=== PATIENT | male | born 1970 | race Two or more races ===

== ENCOUNTER 2019-02-25 12:14 | Emergency (ER) | payer OTHER ==
[~2019-02-25] VITALS: Ht 177.8 cm; Wt 95.3 kg
[2019-02-25 14:00] VITALS: BP 112/72
[2019-02-25] MEDS ORDERED: CLINDAMYCIN 600 MG/4 ML VL IM ONE (14:45)
[2019-02-25] MEDS ORDERED: CLINDAMYCIN 600MG IV 50 ML IV ONE (14:45)
[2019-02-25] MEDS ORDERED: cefTRIAXone 1GM/50ML D5W 50 ML IV ONE (14:45)
[2019-02-25] MEDS ORDERED: cefTRIAXone SOD 1,000 MG VL IM ONE (14:45)
[2019-02-25 14:47] LABS: Basophils # (auto) 0 uL; Basophils % (auto) 0.5 % (0.0-2.0); Eosinophils # (auto) 0.2 uL; Eosinophils % (auto) 1.8 % (0.0-7.0); Hemoglobin 14.6 g/dL (13.5-17.5); Lymphocytes # (auto) 2.3 uL; Lymphocytes % (auto) 24.3 % (10.0-50.0); Mean Corpuscular Hemoglobin 30.6 pg (28.0-32.0); Mean Corpuscular Hgb Conc. 33.2 g/dL (32.0-36.0); Mean Corpuscular Volume 92.3 fL (80.0-100.0); Monocytes # (auto) 0.8 uL; Monocytes % (auto) 8.2 % (0.0-12.0); Neutrophils # (auto) 6.2 uL; Neutrophils % (auto) 65.2 % (37.0-80.0); Nucleated Red Blood Cells % 0.1 %; Platelet Count (auto) 266 10^3/uL (140-450); Red Blood Cells 4.77 10^6/uL (4.5-5.90); Red Cell Distribution Width 14.1 % (11.8-14.3); White Blood Cell 9.4 10^3/uL (4.4-10.8)
[2019-02-25 15:00] LABS: Albumin 4.1 g/dL (3.4-5.0); BUN/Creatinine Ratio 17.7; Potassium 3.6 mmol/L (3.5-5.1)
[2019-02-25 15:03] LABS: Bilirubin, Total 0.3 mg/dL (0.2-1.0)
== END 2019-02-25 15:32 | disposition home or self-care (01) ==
LOC: ER 12:23
DX: L03.115 Cellulitis of right lower limb (principal); Z88.6 Allergy status to analgesic agent; Z48.01 Encounter for change or removal of surgical wound dressing
CPT/HCPCS: 36415; 73590; 80053; 83605; 85025; 87040; 94761; 96365; 96368; 99284; J0696; J3490

== ENCOUNTER → 2019-12-29 | Outpatient (CLI) | payer OTHER ==
[~2019-12-29] MED LIST: CLIN300C8 PO; LEVO-28 PO
[2019-12-29 10:51] LABS: Prostate Specific Antigen 1.78 ng/mL (0.0-4.0)
[2019-12-29 10:52] LABS: Folate (Folic Acid) 16.09 ng/mL (5.38-24)
[2019-12-29 11:21] LABS: BUN/Creatinine Ratio 15.3; Bilirubin, Total 0.4 mg/dL (0.2-1.0); Calcium 9.1 mg/dL (8.5-10.1); Potassium 3.9 mmol/L (3.5-5.1)
[2019-12-30 03:10] LABS: RPR Non Reactive (Non Reactive)
== END | disposition home or self-care (01) ==
LOC: LAB 09:35
PROVIDERS: ATTEND Internal Medicine
DX: Z00.00 Encounter for general adult medical examination without abnormal findings (principal); F10.11 Alcohol abuse, in remission; L03.115 Cellulitis of right lower limb; Z12.11 Encounter for screening for malignant neoplasm of colon; Z20.2 Contact with and (suspected) exposure to infections with a predominantly sexual mode of transmission; Z12.5 Encounter for screening for malignant neoplasm of prostate; Z98.890 Other specified postprocedural states
CPT/HCPCS: 36415; 80053; 80061; 82607; 82746; 84153; 84443; 86592; 86703

== ENCOUNTER → 2020-01-02 | Outpatient (CLI) | payer OTHER | END | disposition home or self-care (01) | LOC: LAB 10:19 | PROVIDERS: ATTEND Internal Medicine | DX: Z00.00 Encounter for general adult medical examination without abnormal findings (principal); F10.11 Alcohol abuse, in remission; Z12.5 Encounter for screening for malignant neoplasm of prostate; Z20.2 Contact with and (suspected) exposure to infections with a predominantly sexual mode of transmission; Z12.11 Encounter for screening for malignant neoplasm of colon | CPT/HCPCS: 82274 ==

== ENCOUNTER → 2020-01-16 | Outpatient (CLI) | payer OTHER | END | disposition home or self-care (01) | LOC: LAB 15:30 | PROVIDERS: ATTEND Physician Assistant | DX: L82.1 Other seborrheic keratosis (principal) ==

== ENCOUNTER 2020-03-29 09:26 | Day surgery (SDC) | payer OTHER ==
[2020-03-26 10:26] LABS: Basophils # (auto) 0 10 ^3/uL (0-0.2); Basophils % (auto) 0.5 % (0.0-2.0); Eosinophils # (auto) 0.1 10 ^3/uL (0-0.8); Eosinophils % (auto) 1.4 % (0.0-7.0); Hematocrit 44.7 % (41.0-53.0); Hemoglobin 14.9 g/dL (13.5-17.5); Mean Corpuscular Hemoglobin 30.8 pg (28.0-32.0); Mean Corpuscular Hgb Conc. 33.4 g/dL (32.0-36.0); Mean Corpuscular Volume 92.1 fL (80.0-100.0); Monocytes # (auto) 0.5 10 ^3/uL (0-1.3); Monocytes % (auto) 5.9 % (0.0-12.0); Neutrophils # (auto) 5.7 10 ^3/uL (1.6-8.6); Neutrophils % (auto) 68.2 % (37.0-80.0); Nucleated Red Blood Cells % 0.1 %; Platelet Count (auto) 223 10^3/uL (140-450); Red Blood Cells 4.85 10^6/uL (4.5-5.90); Red Cell Distribution Width 14.1 % (11.8-14.3); White Blood Cell 8.4 10^3/uL (4.4-10.8)
[2020-03-26 10:34] LABS: INR 1.03 (0.9-1.15); Partial Thromboplastin Time 29.9 sec (23.64-32.05)
[~2020-03-29] VITALS: Ht 177.8 cm; Wt 97.5 kg
[2020-03-29] MEDS ORDERED: SODIUM CHLORIDE LOCK 10 ML ONE (10:02)
[2020-03-29] MEDS: fentaNYL CITRATE 100 MCG/2 ML VL ONE ×3 (10:59→11:08)
[2020-03-29] MEDS: MIDAZOLAM HCL 5 MG/ML-1ML VIAL ONE ×3 (10:59→11:08)
[2020-03-29] MEDS: diphenhdrAMINE HCL 50 MG/1 ML VL ONE ×2 (11:01→11:18)
[2020-03-29 12:17] VITALS: BP 110/64
== END 2020-03-29 12:27 | disposition home or self-care (01) ==
LOC: GI 09:26
PROVIDERS: ATTEND Internal Medicine Gastroenterology
DX: K92.1 Melena (principal); D12.0 Benign neoplasm of cecum; D12.2 Benign neoplasm of ascending colon; Z98.890 Other specified postprocedural states; Z79.899 Other long term (current) drug therapy; Z88.5 Allergy status to narcotic agent
CPT/HCPCS: 36415; 45385; 85025; 85610; 85730; 88305; J1200; J2250; J3010; J7030; 45380; 99152; 99153

== ENCOUNTER → 2020-04-10 | Outpatient (CLI) | payer OTHER | END | disposition home or self-care (01) | LOC: LAB 13:28 | PROVIDERS: ATTEND Surgery | DX: D12.6 Benign neoplasm of colon, unspecified (principal) | CPT/HCPCS: 36415; 82565; 84520 ==

== ENCOUNTER 2020-05-01 06:04 | Inpatient (IN) | payer OTHER ==
[2020-04-29 09:20] LABS: Basophils # (auto) 0 10 ^3/uL (0-0.2); Basophils % (auto) 0.6 % (0.0-2.0); Eosinophils # (auto) 0.1 10 ^3/uL (0-0.8); Eosinophils % (auto) 1.6 % (0.0-7.0); Hematocrit 45.2 % (41.0-53.0); Hemoglobin 15.1 g/dL (13.5-17.5); Lymphocytes # (auto) 2.4 10 ^3/uL (0.4-5.4); Lymphocytes % (auto) 29.8 % (10.0-50.0); Mean Corpuscular Hemoglobin 30.8 pg (28.0-32.0); Mean Corpuscular Hgb Conc. 33.4 g/dL (32.0-36.0); Mean Corpuscular Volume 92.3 fL (80.0-100.0); Monocytes # (auto) 0.5 10 ^3/uL (0-1.3); Neutrophils # (auto) 4.9 10 ^3/uL (1.6-8.6); Nucleated Red Blood Cells % 0.1 %; Platelet Count (auto) 218 10^3/uL (140-450); Red Blood Cells 4.89 10^6/uL (4.5-5.90); White Blood Cell 7.9 10^3/uL (4.4-10.8)
[2020-04-29 09:26] LABS: Urine Bacteria NONE SEEN /hpf (None Seen); Urine Blood Negative /uL (Negative); Urine Mucus FEW (None Seen); Urine Specific Gravity 1.027 (1.001-1.035); Urine WBC 2 /hpf (0 - 3)
[2020-04-29 09:34] LABS: INR 1.02 (0.9-1.15); Partial Thromboplastin Time 30.5 sec (23.64-32.05)
[2020-04-29 09:44] LABS: Albumin 3.7 g/dL (3.4-5.0); Calcium 8.6 mg/dL (8.5-10.1)
[2020-04-29 09:49] LABS: Bilirubin, Total 0.4 mg/dL (0.2-1.0); Total Protein 7.2 g/dL (6.4-8.2)
[~2020-05-01] VITALS: Ht 177.8 cm; Wt 96.7 kg
[2020-05-01] MEDS ORDERED: cefTRIAXone SOD 1,000 MG VL ONE (06:31)
[2020-05-01] MEDS ORDERED: PROPOFOL 10 MG/ML 20 ML IV ONE (07:29)
[2020-05-01] MEDS ORDERED: ROCURONIUM 10MG/ML 10ML VIAL IV ONE (07:29)
[2020-05-01] MEDS ORDERED: ONDANSETRON HCL 4 MG/2 ML VIAL ONE (07:29)
[2020-05-01] MEDS ORDERED: MIDAZOLAM HCL 1MG/1ML-2 ML VIAL ONE (07:29)
[2020-05-01] MEDS ORDERED: fentaNYL CITRATE 5 ML ONE (07:29)
[2020-05-01] MEDS ORDERED: fentaNYL CITRATE 100 MCG/2 ML VL ONE (07:29)
[2020-05-01] MEDS ORDERED: SODIUM CHLORIDE LOCK 10 ML ONE (07:29)
[2020-05-01] MEDS ORDERED: HYDROmorphone HCL 2 MG/ML VL ONE (08:13)
[2020-05-01] MEDS ORDERED: NEOSTIGMINE 1 MG/ML INJ (10mg/10ML VIAL) IV ONE (10:13)
[2020-05-01] MEDS ORDERED: GLYCOPYRROLATE 0.2 MG/ML 1ML VIAL IV ONE (10:13)
[2020-05-01] MEDS ORDERED: SUCCINYLCHOLINE CHLORIDE 20 MG/ML 10ML VIAL IV ONE (10:13)
[2020-05-01] MEDS ORDERED: fentaNYL CITRATE 100 MCG/2 ML VL IV PRN (10:15)
[2020-05-01] MEDS ORDERED: METOCLOPRAMIDE HCL 5MG/ml INJ 2ml VIAL IV PRN (10:15)
[2020-05-01] MEDS ORDERED: MEPERIDINE HCL (25 MG/ML) 1ML VIAL ONE ×2 (11:57→11:59)
[2020-05-01] MEDS ORDERED: KETOROLAC TROMETH 30 MG/ML 1ML VIAL IV ONE (12:00)
[2020-05-01] MEDS ORDERED: D5W/SOD CHL 0.45%/KCL 40MEQ 1,000 ML IV ONE (12:00)
[2020-05-01] MEDS: HYDROmorphone HCL 2 MG/ML VL IV PRN ×5 (12:19→23:37)
[2020-05-01] MEDS: ceFAZolin 1GM/50ML 50 ML IV SCH ×3 (14:14→23:34)
[2020-05-01 14:25] VITALS: BP 108/76
--- NOTE | 2020-05-01 14:25 | NUR ---
PATIENT ARRIVED TO ROOM FROM SURGERY VIA BED. PATIENT ORIENTED TO ROOM, CALL LIGHT PLACED BEDSIDE, BED IN LOCKED AND LOWEST POSITION AND BRAKE SET. NGT PLACED ON LCS. ABDOMINAL INCISION DRESSING IS CLEAN, DRY AND INTACT WITH ABDOMINAL BINDER IN PLACE. PATIENT VS 98.1, 94%, 108/76, 87, 16. NO COMPLAINTS OF PAIN AT THIS TIME. WILL CONTINUE TO MONITOR Q1H AND PRN
[2020-05-01] MEDS: SODIUM CHLORIDE 0.9% 1,000 ML IV SCH (15:03)
[2020-05-01 17:00] VITALS: BP 106/69
--- NOTE | 2020-05-01 18:37 | NUR ---
PAGED DR GARCIA. PATIENT IS FEELING VERY GASSY AND UNCOMFORTABLE HE WOULD LIKE SOME GAS MEDICINE.
--- NOTE | 2020-05-01 18:44 | NUR ---
RECEIVED CALL FROM DR GARCIA, NO ORDERS FOR GAS MEDICINE AT THIS TIME.
--- NOTE | 2020-05-01 18:56 | NUR ---
UPDATE ON PATIENTS STATUS GIVEN TO PATIENTS DAUGHTER, NICKI. PASSWORD WAS VERIFIED.
[2020-05-01 22:00] VITALS: BP 113/67
[2020-05-01] MEDS: FAMOTIDINE (10MG/ML) 2ML VL IV SCH (23:20)
[2020-05-02] MEDS: SODIUM CHLORIDE 0.9% 1,000 ML IV SCH ×3 (00:21→20:00)
[2020-05-02] MEDS: HYDROmorphone HCL 2 MG/ML VL IV PRN ×5 (03:26→21:26)
[2020-05-02 05:00] VITALS: BP 108/62
[2020-05-02 05:16] LABS: Basophils # (auto) 0 10 ^3/uL (0-0.2); Basophils % (auto) 0.3 % (0.0-2.0); Eosinophils # (auto) 0 10 ^3/uL (0-0.8); Eosinophils % (auto) 0.1 % (0.0-7.0); Hematocrit 40.5 % (41.0-53.0); Hemoglobin 13.5 g/dL (13.5-17.5); Lymphocytes # (auto) 1.4 10 ^3/uL (0.4-5.4); Lymphocytes % (auto) 12.6 % (10.0-50.0); Mean Corpuscular Hemoglobin 30.8 pg (28.0-32.0); Mean Corpuscular Hgb Conc. 33.4 g/dL (32.0-36.0); Mean Corpuscular Volume 92.4 fL (80.0-100.0); Monocytes % (auto) 9.5 % (0.0-12.0); Neutrophils # (auto) 8.4 10 ^3/uL (1.6-8.6); Neutrophils % (auto) 77.5 % (37.0-80.0); Platelet Count (auto) 198 10^3/uL (140-450); Red Blood Cells 4.38 10^6/uL (4.5-5.90); Red Cell Distribution Width 14.1 % (11.8-14.3); White Blood Cell 10.9 10^3/uL (4.4-10.8)
[2020-05-02 05:40] LABS: Albumin 2.9 g/dL (3.4-5.0); BUN/Creatinine Ratio 9.5; Calcium 7.8 mg/dL (8.5-10.1); Potassium 3.9 mmol/L (3.5-5.1)
[2020-05-02 05:43] LABS: Bilirubin, Total 0.6 mg/dL (0.2-1.0); Total Protein 6.2 g/dL (6.4-8.2)
[2020-05-02] MEDS: ceFAZolin 1GM/50ML 50 ML IV SCH ×4 (05:44→23:38)
--- NOTE | 2020-05-02 07:43 | NUR ---
RECEIVED REPORT AND ASSUMED CARE OF PT. Ja/ANMOL4. DENIED S/S ACUTE DISTRESS. UPDATE PT WITH POC. BED AT LOWEST POSITION. CALL LIGHT AND BELONGINGS WITHIN REACH. WILL CONT TO MONITOR. Addendum: 05/02/20 at 1933 by HAYDER VASQUEZ RN ENCOURAGED TO US IS
[2020-05-02] MEDS ORDERED: cefTRIAXone 1GM/50ML D5W 50 ML IV SCH (09:00)
[2020-05-02 09:01] VITALS: BP 131/69
[2020-05-02] MEDS ORDERED: IBUP800T24 PO (09:36)
[2020-05-02] MEDS: FAMOTIDINE (10MG/ML) 2ML VL IV SCH ×2 (10:39→21:26)
[2020-05-02 12:48] VITALS: BP 125/59
[2020-05-02 16:48] VITALS: BP 138/75
--- NOTE | 2020-05-02 19:33 | NUR ---
50ML OF SANGUINOUS OUTPUT FROM ABY DRAIN.
--- NOTE | 2020-05-02 19:50 | NUR ---
Opening Shift Note Assumed care of patient, eyes closed, respirations even and unlabored, appears asleep. Patient awakens to name and touch. No S/S of distress/SOB or pain. Bed in lowest locked position, side rails up x2, call light within reach. Minimal drainage to abdominal site noted, drainage outlined. [place] ABY drain noted, no output at this time. Abdominal binder in place. Will continue to monitor. Instructed on POC and to call for assist PRN, will continue to monitor for changes Q1hr and PRN.
[2020-05-02 22:00] VITALS: BP 122/78
[2020-05-03] MEDS: HYDROmorphone HCL 2 MG/ML VL IV PRN ×5 (02:04→22:08)
[2020-05-03 05:00] VITALS: BP 124/75
[2020-05-03] MEDS: SODIUM CHLORIDE 0.9% 1,000 ML IV SCH ×2 (06:00→16:04)
[2020-05-03] MEDS: ceFAZolin 1GM/50ML 50 ML IV SCH ×3 (06:59→17:58)
--- NOTE | 2020-05-03 07:00 | NUR ---
Opening Shift Note Received report on the patient. Awake lying in bed. Patient shows no signs of distress at this time. Discussed plan of care with the patient. Bed in lowest position, side rails up x2, and the call light is within reach.
--- NOTE | 2020-05-03 07:36 | NUR ---
Closing Note Patient lying in bed, awake and alert. Bed in lowest locked position, side rails up x2, call light within reach. No s/s of distress. Care endorsed to dayserin CARROLL. Addendum: 05/03/20 at 0839 by AMANDO BAUTISTA RN RN ADDITION: 25 ml of output from ABY drain at this time.
[2020-05-03 08:50] VITALS: BP 124/68
[2020-05-03 09:00] VITALS: BP 123/73
[2020-05-03] MEDS: FAMOTIDINE (10MG/ML) 2ML VL IV SCH ×2 (10:02→22:08)
[2020-05-03 13:48] VITALS: BP 123/73
--- NOTE | 2020-05-03 15:18 | NUR ---
Nutrition Assessment Notes Please refer to link for full assessment notes. Est Energy needs: 6727-4947 kcals (17-20 kcal/kgBW) Est Protein needs: 79-98 gms/day (0.8-1.0 gm/kgBW) Will continue to monitor and reassess prn. Addendum: 05/03/20 at [address] Amended: Links added.
[2020-05-03 16:42] VITALS: BP 135/69
--- NOTE | 2020-05-03 19:30 | NUR ---
Opening Shift Note Assumed care of patient, eyes closed, respirations even and unlabored, appears asleep. Patient awakens to name and touch. No S/S of distress/SOB or pain. Bed in lowest locked position, side rails up x2, call light within reach. Minimal drainage to abdominal site noted, drainage outlined. No further extension of drainage past previously marked outline yesterday. Singe ABY drain noted, no output at this time. Abdominal binder in place. Will continue to monitor. Instructed on POC and to call for assist PRN, will continue to monitor for changes Q1hr and PRN.
--- NOTE | 2020-05-03 19:31 | NUR ---
ABY drained 50cc out
[2020-05-03 22:00] VITALS: BP 123/67
[2020-05-04] MEDS: ceFAZolin 1GM/50ML 50 ML IV SCH ×4 (00:10→17:23)
[2020-05-04] MEDS: SODIUM CHLORIDE 0.9% 1,000 ML IV SCH ×3 (01:47→14:42)
[2020-05-04 05:00] VITALS: BP 124/69
[2020-05-04] MEDS: HYDROmorphone HCL 2 MG/ML VL IV PRN ×4 (05:45→22:08)
--- NOTE | 2020-05-04 07:40 | NUR ---
Opening Shift Note Assumed care of patient, eyes closed, respirations even and unlabored. No S/S of distress/SOB or pain. Bed in lowest locked position, side rails up x2, call light within reach. Minimal drainage to abdominal site noted, drainage outlined. No further extension of drainage past previously marked outline yesterday. Singe ABY drain noted, 50CC output at this time. Abdominal binder in place. Will continue to monitor. Instructed on POC and to call for assist PRN, will continue to monitor for changes Q1hr and PRN.
--- NOTE | 2020-05-04 07:40 | NUR ---
Closing Note Patient lying in bed, awake and alert. Bed in lowest locked position, side rails up x2, call light within reach. No s/s of distress. 50 ML drained from ABY drain. Care endorsed to dayshift RN.
[2020-05-04] MEDS: FAMOTIDINE (10MG/ML) 2ML VL IV SCH ×2 (09:06→21:32)
[2020-05-04] MEDS ORDERED: TPN PER PHARMACY 0 ML IV SCH (16:30)
--- NOTE | 2020-05-04 17:30 | NUR ---
PAGED ON-CALL HOSPITALIST RE: PT REQUEST FOR CHLORASEPTIC TO HELP WITH THROAT IRRITATION FROM NG TUBE. AWATING CALL BACK
--- NOTE | 2020-05-04 18:00 | NUR ---
removed 25cc from roberto drain 150cc obtained from NG tube
[2020-05-04 22:00] VITALS: BP 116/69
[2020-05-05] MEDS: ceFAZolin 1GM/50ML 50 ML IV SCH ×5 (00:40→23:44)
[2020-05-05] MEDS: HYDROmorphone HCL 2 MG/ML VL IV PRN ×4 (02:48→17:28)
[2020-05-05 05:00] VITALS: BP 116/67
[2020-05-05 05:50] LABS: Basophils # (auto) 0 10 ^3/uL (0-0.2); Basophils % (auto) 0.4 % (0.0-2.0); Eosinophils # (auto) 0.2 10 ^3/uL (0-0.8); Eosinophils % (auto) 2.3 % (0.0-7.0); Hematocrit 35.8 % (41.0-53.0); Hemoglobin 12.2 g/dL (13.5-17.5); Lymphocytes # (auto) 1.1 10 ^3/uL (0.4-5.4); Lymphocytes % (auto) 11.1 % (10.0-50.0); Mean Corpuscular Volume 91.1 fL (80.0-100.0); Monocytes % (auto) 10.2 % (0.0-12.0); Neutrophils # (auto) 7.6 10 ^3/uL (1.6-8.6); Nucleated Red Blood Cells % 0.1 %; Platelet Count (auto) 212 10^3/uL (140-450); Red Blood Cells 3.93 10^6/uL (4.5-5.90); Red Cell Distribution Width 13.3 % (11.8-14.3)
[2020-05-05 06:16] LABS: Albumin 2.6 g/dL (3.4-5.0); Calcium 8.1 mg/dL (8.5-10.1); Magnesium 2.4 mg/dL (1.6-2.6); Potassium 3.2 mmol/L (3.5-5.1)
[2020-05-05 06:22] LABS: BUN/Creatinine Ratio 14.5; Bilirubin, Total 0.5 mg/dL (0.2-1.0); Phosphorus 2.1 mg/dL (2.5-4.90); Pre Albumin 9.4 mg/dL (20.0-40.0); Total Protein 6.3 g/dL (6.4-8.2)
--- NOTE | 2020-05-05 07:23 | NUR ---
Closing Note Patient lying in bed, awake and alert. Bed in lowest locked position, side rails up x2, call light within reach. 125 ml of drainage from NG tube, 25 ml from ABY drain. No s/s of distress. Care endorsed to dayshift RN.
[2020-05-05 09:00] VITALS: BP 118/66
[2020-05-05] MEDS: SODIUM CHLORIDE 0.9% 1,000 ML IV SCH (11:03)
[2020-05-05] MEDS: FAMOTIDINE (10MG/ML) 2ML VL IV SCH ×2 (11:13→22:00)
--- NOTE | 2020-05-05 11:39 | NUR ---
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 Will inform .
[2020-05-05 13:00] VITALS: BP 118/64
[2020-05-05] MEDS: SORE THROAT SPRAY 6OZ BOTTLE MT PRN ×2 (14:30→17:31)
--- NOTE | 2020-05-05 15:13 | NUR ---
Nutrition Followup Note WT: 95.9 kg Pt`s s/p hemicolectomy sleeping with no family by bedside. pt is currently NPO and per RN to begin PN support once has PICC. Est Energy needs: 3279-1807 kcals (17-20 kcal/kgBW), Est Protein needs: 79-98 gms/day (0.8-1.0 gm/kgBW). Will continue to monitor and reassess prn. LABS: PREALB 9.4 L, ALB 2.6 L, CA 8.1 L, TG wnl GI: Pt has no BM reported with 120 ml gastric drainage per RN doc. BS: 20 low risk. Please refer to wound assessment report for full details. PES: Problem Altered nutrition related lab values r.t current chronic medical condition aeb hyperglycemia, mod hypoalb Problem: 1) Increased nutrient needs aeb Pt currently NPO r/t pt with no PO intake 2) Altered nutrition related lab values aeb hypocalcemia, mod hypoalbuminemia r/t current medical condition Comments: 1) advance PN support to meet > 75% of needs. 2) Continue to closely monitor pt NPO status. 2) Gradually advance pt to oral diet when medically feasible and as tolerated 3) Continue current plan of care
--- NOTE | 2020-05-05 16:00 | NUR ---
Hospitalist at bedside MD Lunsford aware of patient's status. New orders received to dc NGT as pt states he's passing "alot" of gas. New orders for ice chips now and advance diet to clear liq tomorrow for breakfast if pt tolerating ice chips and no n/v reported. Patient instructed and verbalized understanding. Will carry out orders and cont care
[2020-05-05] MEDS ORDERED: POTASSIUM CHLORIDE 20 MEQ, LIDOCAINE 1% (LOCAL ANESTH.) 2 ML in SODIUM CHL 0.9% 100 ML IV ONE (16:15)
[2020-05-05 17:00] VITALS: BP 117/65
--- NOTE | 2020-05-05 17:28 | NUR ---
NGT removal NGT removed per MD Lunsford order following explanation and instruction to patient. Patient verbalized understanding prior to removal. Medicated for pain as ordered and Patient tolerated well. Patient instructed to report any n/v/abd pain recurring he verbalized understanding. Cont care
[2020-05-05] MEDS: SOD CHL 0.9%/ KCL 20MEQ 1,000 ML IV SCH (17:42)
--- NOTE | 2020-05-05 19:00 | NUR ---
ABY drain removal output is 25ml serosanguineous fluid. Cont to monitor
[2020-05-05 21:00] VITALS: BP 106/42
[2020-05-06] MEDS: HYDROmorphone HCL 2 MG/ML VL IV PRN ×5 (00:53→19:21)
--- NOTE | 2020-05-06 00:53 | NUR ---
C/O pain patient requesting pain meds. Medicated with Dilaudid as ordered. Will cont to monitor
--- NOTE | 2020-05-06 02:55 | NUR ---
Patient care endorsed endorsed care to Hanny cerna. Patient resting in bed with eyes closed, breathing non labored, no s/s of pain noted at this time or n/v. Call light within reach.
--- NOTE | 2020-05-06 03:00 | NUR ---
Opening Shift Note Received report on the patient. Sleeping in bed. Patient shows no signs of distress at this time. Bed in lowest position, side rails up x2, and the call light is within reach.
[2020-05-06] MEDS: SOD CHL 0.9%/ KCL 20MEQ 1,000 ML IV SCH ×2 (04:05→12:37)
[2020-05-06] MEDS: SORE THROAT SPRAY 6OZ BOTTLE MT PRN (04:05)
[2020-05-06] MEDS: ceFAZolin 1GM/50ML 50 ML IV SCH ×2 (05:32→12:38)
[2020-05-06 06:32] LABS: Basophils # (auto) 0 10 ^3/uL (0-0.2); Basophils % (auto) 0.4 % (0.0-2.0); Eosinophils # (auto) 0.2 10 ^3/uL (0-0.8); Eosinophils % (auto) 1.7 % (0.0-7.0); Hematocrit 35.5 % (41.0-53.0); Lymphocytes # (auto) 1.1 10 ^3/uL (0.4-5.4); Mean Corpuscular Hemoglobin 30.8 pg (28.0-32.0); Mean Corpuscular Hgb Conc. 33.7 g/dL (32.0-36.0); Mean Corpuscular Volume 91.3 fL (80.0-100.0); Monocytes # (auto) 1.3 10 ^3/uL (0-1.3); Monocytes % (auto) 10.8 % (0.0-12.0); Neutrophils # (auto) 9.5 10 ^3/uL (1.6-8.6); Neutrophils % (auto) 78.1 % (37.0-80.0); Platelet Count (auto) 227 10^3/uL (140-450); Red Blood Cells 3.89 10^6/uL (4.5-5.90); Red Cell Distribution Width 13.8 % (11.8-14.3); White Blood Cell 12.1 10^3/uL (4.4-10.8)
[2020-05-06 06:53] LABS: Albumin 2.4 g/dL (3.4-5.0); Calcium 8.2 mg/dL (8.5-10.1); Magnesium 2.2 mg/dL (1.6-2.6); Potassium 3.5 mmol/L (3.5-5.1)
[2020-05-06 06:57] LABS: BUN/Creatinine Ratio 13.2; Bilirubin, Total 0.8 mg/dL (0.2-1.0); Phosphorus 2.4 mg/dL (2.5-4.90); Total Protein 6.3 g/dL (6.4-8.2)
--- NOTE | 2020-05-06 07:15 | NUR ---
OPENING SHIFT NOTE Assumed care of patient, hand off report received from NOC nurse at this time.
--- NOTE | 2020-05-06 08:00 | NUR ---
ABY drain full Patient called regarding ABY drain being full. 150 ml of bright red serosanguineous fluid removed at this time.
[2020-05-06 09:00] VITALS: BP 106/66
[2020-05-06 09:13] LABS: INR 1.06 (0.9-1.15)
[2020-05-06] MEDS: FAMOTIDINE (10MG/ML) 2ML VL IV SCH ×2 (10:33→22:08)
--- NOTE | 2020-05-06 12:10 | NUR ---
Elevated temperature Patient temperature 99.4 and 100.4 upon reassessment. paged at this time as patient has no PRN Tylenol. Cold packs placed on armpits at this time. Patient seen to be trembling and states he is cold. Will continue to monitor.
--- NOTE | 2020-05-06 12:15 | NUR ---
paged back Dr. Ibanez paged back, new orders for Tylenol 500 mg PO Q6hr PRN for temperature above 100.4. No other orders received at this time.
[2020-05-06] MEDS: ACETAMINOPHEN 325 MG TAB PO PRN ×2 (12:39→19:21)
[2020-05-06 13:00] VITALS: BP 117/69
--- NOTE | 2020-05-06 13:39 | NUR ---
Fever reassessment. Increased temperature of 102.4 at this time. New cold packs for underneath armpits changed at this time. Will notify MD of increase in temperature and continue to monitor.
[2020-05-06] MEDS ORDERED: cefTRIAXone 1GM/50ML D5W 50 ML IV ONE (14:00)
[2020-05-06] MEDS: metroNIDAZOLE 500MG/100ML 100 ML IV SCH ×2 (14:40→22:08)
[2020-05-06 17:02] VITALS: BP 147/97
--- NOTE | 2020-05-06 19:15 | NUR ---
ABY drain output 10 ml of serosanguineous bright red fluid.
--- NOTE | 2020-05-06 19:22 | NUR ---
Fever/pain Patient temperature 103.2 at this time. Cooling measures initiated will administer Tylenol 500 mg PO per MD orders and endorse care to NOC nurse. Patient complaining of pain 10/10 from right lower abdomen will medicate with Dilaudid 1 mg IV per MD orders at this time and endorse care to NOC nurse.
--- NOTE | 2020-05-06 19:30 | NUR ---
Opening Shift Note Assumed care of patient, awake and alert. No S/S of distress/SOB or pain. Instructed on POC and to call for assist PRN, will continue to monitor for changes Q1hr and PRN.
--- NOTE | 2020-05-06 19:51 | NUR ---
RE Pain patient said "my stomach hurts on and off, when it comes its a 6".
[2020-05-06 20:00] VITALS: BP 99/58
--- NOTE | 2020-05-06 20:21 | NUR ---
Re Temp Patient's temperature is 100.3 Cooling measures taken, will continue to monitor.
--- NOTE | 2020-05-06 21:40 | NUR ---
IV removal IV DC'd with clean sterile technique, catheter fully intact. Pressure dressing applied to site. Patient tolerated well.
--- NOTE | 2020-05-06 21:45 | NUR ---
IV insertion IV access obtained, via clean sterile technique by inserting 20 gauge catheter at RW after 1 attempts. IV secured properly. No trauma to site. Patient tolerated well.
[2020-05-06 22:07] VITALS: BP 99/58
[2020-05-06] MEDS: HYDROcodone-ACET 5/325MG TAB PO PRN (22:09)
--- NOTE | 2020-05-06 22:09 | NUR ---
Pain Patient c/o of pain 6/10 to abdomen, pain medication administered.
--- NOTE | 2020-05-06 23:09 | NUR ---
RE Pain Patient is resting with eyes close, no signs of pain or distress.
[2020-05-07] MEDS: SOD CHL 0.9%/ KCL 20MEQ 1,000 ML IV SCH ×2 (00:20→13:38)
[2020-05-07] MEDS: HYDROmorphone HCL 2 MG/ML VL IV PRN ×4 (00:29→20:40)
--- NOTE | 2020-05-07 00:29 | NUR ---
Pain Patient c/o pain 7/10 to lower abdomen, pain medication administered.
--- NOTE | 2020-05-07 00:30 | NUR ---
RE Temperature Patient's temperature is 99.6 orally, will continue to monitor.
--- NOTE | 2020-05-07 00:59 | NUR ---
RE Pain Patient resting with eyes closed, no signs of pain or distress, will continue to monitor.
[2020-05-07] MEDS: HYDROcodone-ACET 5/325MG TAB PO PRN (04:10)
--- NOTE | 2020-05-07 04:10 | NUR ---
Pain Patient c/o pain 6/10 to abdomen. pain medication administered.
--- NOTE | 2020-05-07 05:10 | NUR ---
RE Pain Patient resting with eyes closed, no signs of pain or distress, will continue to monitor.
[2020-05-07 05:28] VITALS: BP 109/70
--- NOTE | 2020-05-07 05:29 | NUR ---
Pain Patient c/o pain / to abdomen. pain medication administered.
[2020-05-07] MEDS: metroNIDAZOLE 500MG/100ML 100 ML IV SCH ×3 (05:34→22:17)
[2020-05-07 05:55] LABS: Basophils # (auto) 0 10 ^3/uL (0-0.2); Basophils % (auto) 0.2 % (0.0-2.0); Eosinophils # (auto) 0.2 10 ^3/uL (0-0.8); Eosinophils % (auto) 1.8 % (0.0-7.0); Hematocrit 35.5 % (41.0-53.0); Lymphocytes % (auto) 7.7 % (10.0-50.0); Mean Corpuscular Hemoglobin 31.1 pg (28.0-32.0); Mean Corpuscular Hgb Conc. 33.8 g/dL (32.0-36.0); Mean Corpuscular Volume 92.1 fL (80.0-100.0); Monocytes # (auto) 1.4 10 ^3/uL (0-1.3); Monocytes % (auto) 10.8 % (0.0-12.0); Neutrophils % (auto) 79.5 % (37.0-80.0); Nucleated Red Blood Cells % 0.1 %; Platelet Count (auto) 233 10^3/uL (140-450); Red Blood Cells 3.86 10^6/uL (4.5-5.90); Red Cell Distribution Width 13.8 % (11.8-14.3); White Blood Cell 12.5 10^3/uL (4.4-10.8)
[2020-05-07 06:16] LABS: Potassium 3.1 mmol/L (3.5-5.1)
[2020-05-07 06:28] LABS: BUN/Creatinine Ratio 8.8; Calcium 8.3 mg/dL (8.5-10.1)
--- NOTE | 2020-05-07 06:55 | NUR ---
ABY Drain ABY drain out 5ml sanguinous.
--- NOTE | 2020-05-07 07:05 | NUR ---
Closing shift note No s/s of distress noted, endorsed care to dayshift nurse.
[2020-05-07 08:44] VITALS: BP 95/55
--- NOTE | 2020-05-07 09:04 | NUR ---
OPENING SHIFT NOTE Assumed care of patient, PT is awake and alert. No S/S of distress/SOB. Instructed on POC. Call light within reach patient. Instructed PT to call for assistance, patient verbalized understanding. Will continue to monitor for changes Q1hr and PRN.
[2020-05-07] MEDS: FAMOTIDINE (10MG/ML) 2ML VL IV SCH ×2 (10:09→22:17)
[2020-05-07] MEDS: cefTRIAXone 1GM/50ML D5W 50 ML IV SCH (10:09)
[2020-05-07 13:00] VITALS: BP 98/58
[2020-05-07] MEDS ORDERED: POTASSIUM CHL 20 Meq TABLET PO ONE (13:30)
[2020-05-07 16:38] VITALS: BP 101/59
--- NOTE | 2020-05-07 16:51 | NUR ---
PT ASKED TO HAVE STOOL ASSESSED. STOOL APPEARS DARK GREEN AND WATERY. MUCUS NOT OBSERVED.
[2020-05-07 20:00] VITALS: BP 111/48
--- NOTE | 2020-05-07 20:40 | NUR ---
Pain patient c/o pain 8/10 to abdomen. pain medication administered.
--- NOTE | 2020-05-07 21:10 | NUR ---
RE Pain Patient stated "my pain went down its a 4/10", will continue to monitor.
[2020-05-07 22:00] VITALS: BP 111/48
[2020-05-08] MEDS: SOD CHL 0.9%/ KCL 20MEQ 1,000 ML IV SCH ×2 (03:00→19:11)
[2020-05-08 05:05] VITALS: BP 103/59
[2020-05-08] MEDS: HYDROmorphone HCL 2 MG/ML VL IV PRN ×3 (05:11→20:37)
--- NOTE | 2020-05-08 05:11 | NUR ---
Pain patient c/o pain / to abdomen. pain medication administered.
--- NOTE | 2020-05-08 05:41 | NUR ---
RE PAIN PATIENT RESTING WITH EYES CLOSED, NO SIGN OF DISTRESS OR PAIN.
[2020-05-08] MEDS: metroNIDAZOLE 500MG/100ML 100 ML IV SCH ×3 (06:22→22:07)
--- NOTE | 2020-05-08 06:58 | NUR ---
ABY DRAIN REMOVAL REMOVED 2ML FROM DRAIN FOR NOC SHIFT.
--- NOTE | 2020-05-08 07:11 | NUR ---
Closing shift note No s/s of distress noted, endorsed care to dayshift nurse.
--- NOTE | 2020-05-08 08:18 | NUR ---
OPENING SHIFT NOTE Resumed care of patient. PT is awake and alert. No S/S of distress/SOB, or pain. Reports good tolerance of soft diet. Instructed on POC. Call light within reach patient. Instructed PT to call for assistance, patient verbalized understanding. Will continue to monitor for changes Q1hr and PRN.
[2020-05-08 08:28] LABS: Calcium 8.2 mg/dL (8.5-10.1); Potassium 3.9 mmol/L (3.5-5.1)
[2020-05-08 08:42] LABS: BUN/Creatinine Ratio 7.7
[2020-05-08 08:48] VITALS: BP 91/57
[2020-05-08] MEDS: FAMOTIDINE (10MG/ML) 2ML VL IV SCH (10:03)
[2020-05-08] MEDS: cefTRIAXone 1GM/50ML D5W 50 ML IV SCH (10:04)
[2020-05-08 12:46] VITALS: BP_SYST 108; BP_SYST 98; BP_DIAS 66; BP_DIAS 72
--- NOTE | 2020-05-08 15:45 | NUR ---
Nutrition Followup Note WT: 96.7 kg Pt was awake with no family by bedside. Pt noted he is feelin much better post surgery, had no complaints or distress. Pt is currently on a [facility] Soft diet, appetite is good aeb 75% x3 PO intake per RN doc. Will continue to closely monitor pertinent labs, PO intake and skin status prn. Will followup in 3-5 days Est Energy needs: 7042-1164 kcals (17-20 kcal/kgBW), Est Protein needs: 79-98 gms/day (0.8-1.0 gm/kgBW). Will continue to monitor and reassess prn. LABS: ALB 2.4 L, Gluc 110 H, Ca 8.2 L GI: Pt had 4 BM on 05/08, diarrhea, per RN doc. BS: 21 low risk. Please refer to wound assessment report for full details. PES: Problem Altered nutrition related lab values r.t current chronic medical condition aeb hyperglycemia, mod hypoalb Problem: 1) Increased nutrient needs aeb Pt currently NPO r/t pt with no PO intake 2) Altered nutrition related lab values aeb hypocalcemia, mod hypoalbuminemia r/t current medical condition Comments: 1) advance PN support to meet > 75% of needs. 2) Continue to closely monitor pt NPO status. 2) Gradually advance pt to oral diet when medically feasible and as tolerated 3) Continue current plan of care
[2020-05-08 16:40] VITALS: BP_SYST 100; BP_SYST 122; BP_DIAS 66; BP_DIAS 72
--- NOTE | 2020-05-08 20:00 | NUR ---
Opening Shift Note Assumed care of patient, awake and alert. No S/S of distress/SOB or pain. Instructed on POC and to callfor assist PRN, will continue to monitor for changes Q1hr and PRN.
--- NOTE | 2020-05-08 20:37 | NUR ---
Pain patient c/o pain / to abdomen. pain medication administered.
--- NOTE | 2020-05-08 21:07 | NUR ---
Re Pain Patient stated "My pain is a 3/10, it feels better". will continue to monitor.
[2020-05-08] MEDS: FAMOTIDINE 20 MG TAB PO SCH (22:00)
[2020-05-08 22:04] VITALS: BP 104/64
[2020-05-09] MEDS: HYDROmorphone HCL 2 MG/ML VL IV PRN ×2 (02:45→11:14)
--- NOTE | 2020-05-09 02:45 | NUR ---
Pain Patient c/o pain /10 to abdomen, pain medication administered.
--- NOTE | 2020-05-09 03:15 | NUR ---
RE Pain Patient resting with eyes closed, no signs or pain or distress, will continue to monitor.
[2020-05-09 05:00] VITALS: BP 102/61
[2020-05-09] MEDS: SOD CHL 0.9%/ KCL 20MEQ 1,000 ML IV SCH ×2 (05:40→18:14)
[2020-05-09 05:56] LABS: Basophils # (auto) 0 10 ^3/uL (0-0.2); Basophils % (auto) 0.3 % (0.0-2.0); Eosinophils # (auto) 0.3 10 ^3/uL (0-0.8); Eosinophils % (auto) 3.2 % (0.0-7.0); Hematocrit 31.4 % (41.0-53.0); Hemoglobin 10.7 g/dL (13.5-17.5); Lymphocytes # (auto) 1.5 10 ^3/uL (0.4-5.4); Lymphocytes % (auto) 17.6 % (10.0-50.0); Mean Corpuscular Hemoglobin 31.3 pg (28.0-32.0); Mean Corpuscular Volume 92.1 fL (80.0-100.0); Monocytes # (auto) 0.9 10 ^3/uL (0-1.3); Monocytes % (auto) 10.5 % (0.0-12.0); Neutrophils % (auto) 68.4 % (37.0-80.0); Nucleated Red Blood Cells % 0.1 %; Platelet Count (auto) 254 10^3/uL (140-450); Red Blood Cells 3.41 10^6/uL (4.5-5.90); Red Cell Distribution Width 13.9 % (11.8-14.3); White Blood Cell 8.8 10^3/uL (4.4-10.8)
[2020-05-09] MEDS: metroNIDAZOLE 500MG/100ML 100 ML IV SCH ×2 (06:03→14:00)
[2020-05-09 06:22] LABS: BUN/Creatinine Ratio 11.4; Calcium 7.8 mg/dL (8.5-10.1); Potassium 3.3 mmol/L (3.5-5.1)
--- NOTE | 2020-05-09 06:55 | NUR ---
ABY drain removal NOC Shift 12 cc serosanguineous
--- NOTE | 2020-05-09 07:05 | NUR ---
Closing shift note No s/s of distress noted, endorsed care to dayshift nurse.
--- NOTE | 2020-05-09 08:18 | NUR ---
OPENING SHIFT NOTE Resumed care of patient. PT is sitting comfortably in bed. No S/S of distress/SOB, or pain. Instructed on POC. Call light within reach patient. Instructed PT to call for assistance, patient verbalized understanding. Will continue to monitor for changes Q1hr and PRN.
[2020-05-09 09:00] VITALS: BP 102/61
[2020-05-09] MEDS ORDERED: levoFLOXacin 500 MG TAB PO SCH (10:00)
[2020-05-09] MEDS: FAMOTIDINE 20 MG TAB PO SCH (10:00)
[2020-05-09 13:00] VITALS: BP 101/65
--- NOTE | 2020-05-09 15:10 | NUR ---
ASKED PT IF HE WAS READY TO BE DISCHARGED. PT STATED HE WANTED TO SHOWER FIRST. TOLD PT DISCHARGE WOULD OCCUR LATER IN THE AFTERNOON. PT AGREED.
--- NOTE | 2020-05-09 15:23 | NUR ---
assessment Patient has no post discharge needs identified at this time. Addendum: 05/09/20 at 1523 by Li STEWART Amended: Links added.
[2020-05-09 16:38] VITALS: BP 112/67
--- NOTE | 2020-05-09 17:46 | NUR ---
READY TO DISCHARGE PT. PT WAS GETTING DRESSED FROM SHOWER. STATED FAMILY WAS 20 MINUTES AWAY. WILL PROCEED WITH DISCHARGE WHEN PT IS DRESSED AND READY.
[2020-05-09 17:52] VITALS: BP 101/65
--- NOTE | 2020-05-09 18:45 | NUR ---
Discharge instructions given as ordered. Encourage to follow up with PMD as instructed. All questions and concerns addressed. Patient verbalized understanding. Medication reconciliation form completed and copy given to patient.IV removed with catheter intact, pressure dressing applied. Patient taken to vehicle via wheelchair with all personal belongings, accompanied by staff and family member. No distress noted at time of departure.
== END 2020-05-09 18:45 | disposition home or self-care (01) | DRG 330 ==
LOC: TELE 06:04 → EDSTATUS 07:00 → WEST WING 14:29
PROVIDERS: ADMIT Surgery; ATTEND Internal Medicine
PROC: 0D9670Z Drainage of Stomach with Drainage Device, Via Natural or Artificial Opening (ICD-10-PCS; 2020-05-01)
PROC: 0DTF0ZZ Resection of Right Large Intestine, Open Approach (ICD-10-PCS; principal; 2020-05-01 10:14)
DX: C18.2 Malignant neoplasm of ascending colon (principal); E44.0 Moderate protein-calorie malnutrition; J98.11 Atelectasis; E66.9 Obesity, unspecified; Z68.30 Body mass index [BMI] 30.0-30.9, adult; Z88.5 Allergy status to narcotic agent; Z87.891 Personal history of nicotine dependence; Z87.442 Personal history of urinary calculi; Z79.899 Other long term (current) drug therapy; Z11.59 Encounter for screening for other viral diseases
CPT/HCPCS: 36415; 71045; 74018; 80048; 80053; 81001; 82040; 83735; 84100; 84443; 84478; 85025; 85610; 85730; 87040; 87635; 93005; G0378; J0330; J0690; J0696; J2001; J2250; J2405; J2704; J3490

== ENCOUNTER 2020-12-03 15:49 | Emergency (ER) | payer MEDICAID, OTHER ==
[~2020-12-03] VITALS: Ht 177.8 cm; Wt 87.5 kg
[2020-12-03 15:49] VITALS: BP 147/84
[~2020-12-03 15:49] MED LIST changes: -CLIN300C8 PO; +IBUP800T24 PO; -LEVO-28 PO
[2020-12-03] MEDS ORDERED: cefTRIAXone SOD 1,000 MG VL IM ONE (17:00)
== END 2020-12-03 18:08 | disposition home or self-care (01) ==
LOC: ER 15:49
DX: U07.1 COVID-19 (principal); J18.9 Pneumonia, unspecified organism
CPT/HCPCS: 71045; 96372; 99283; J0696

== ENCOUNTER 2021-02-21 14:38 | Outpatient (CLI) | payer MEDICAID ==
[~2021-02-21] VITALS: Ht 177.8 cm; Wt 90.7 kg
[~2021-02-21 14:38] MED LIST changes: -IBUP800T24 PO; +IBUP800T27 PO
[2021-02-21 15:05] LABS: Basophils # (auto) 0 10 ^3/uL (0-0.2); Basophils % (auto) 0.6 % (0.0-2.0); Eosinophils # (auto) 0.1 10 ^3/uL (0-0.8); Eosinophils % (auto) 1.9 % (0.0-7.0); Hematocrit 42.2 % (41.0-53.0); Hemoglobin 14.4 g/dL (13.5-17.5); Lymphocytes # (auto) 2.3 10 ^3/uL (0.4-5.4); Lymphocytes % (auto) 31.2 % (10.0-50.0); Mean Corpuscular Hemoglobin 31.3 pg (28.0-32.0); Mean Corpuscular Hgb Conc. 34.2 g/dL (32.0-36.0); Mean Corpuscular Volume 91.4 fL (80.0-100.0); Monocytes # (auto) 0.4 10 ^3/uL (0-1.3); Monocytes % (auto) 5.7 % (0.0-12.0); Neutrophils # (auto) 4.5 10 ^3/uL (1.6-8.6); Neutrophils % (auto) 60.6 % (37.0-80.0); Nucleated Red Blood Cells % 0.1 %; Platelet Count (auto) 232 10^3/uL (140-450); Red Blood Cells 4.61 10^6/uL (4.5-5.90); Red Cell Distribution Width 14.3 % (11.8-14.3); White Blood Cell 7.5 10^3/uL (4.4-10.8)
[2021-02-21 15:23] LABS: INR 0.98 (0.9-1.15); Partial Thromboplastin Time 28.8 sec (23.0-31.2)
== END 2021-02-21 15:57 | disposition home or self-care (01) ==
LOC: LAB 14:38 → EDSTATUS 02-25 09:53
PROVIDERS: ATTEND Internal Medicine Gastroenterology
DX: Z01.818 Encounter for other preprocedural examination (principal); Z85.038 Personal history of other malignant neoplasm of large intestine; Z88.5 Allergy status to narcotic agent; Z88.8 Allergy status to other drugs, medicaments and biological substances; Z91.048 Other nonmedicinal substance allergy status; Z80.0 Family history of malignant neoplasm of digestive organs; Z20.822 Contact with and (suspected) exposure to COVID-19
CPT/HCPCS: 36415; 85025; 85610; 85730; U0003

== ENCOUNTER 2021-04-22 07:45 | Day surgery (SDC) | payer MEDICAID ==
[2021-04-18 11:42] LABS: INR 1.02 (0.9-1.15); Partial Thromboplastin Time 30.1 sec (23.0-31.2)
[2021-04-18 11:50] LABS: Albumin 3.8 g/dL (3.4-5.0); Calcium 8.9 mg/dL (8.5-10.1); Potassium 3.8 mmol/L (3.5-5.1)
[2021-04-18 11:52] LABS: Basophils # (auto) 0 10 ^3/uL (0-0.2); Basophils % (auto) 0.4 % (0.0-2.0); Eosinophils # (auto) 0.1 10 ^3/uL (0-0.8); Eosinophils % (auto) 1.2 % (0.0-7.0); Hematocrit 43.7 % (41.0-53.0); Hemoglobin 14.7 g/dL (13.5-17.5); Lymphocytes # (auto) 2.3 10 ^3/uL (0.4-5.4); Lymphocytes % (auto) 31.6 % (10.0-50.0); Mean Corpuscular Hemoglobin 30.4 pg (28.0-32.0); Mean Corpuscular Hgb Conc. 33.6 g/dL (32.0-36.0); Mean Corpuscular Volume 90.5 fL (80.0-100.0); Monocytes # (auto) 0.4 10 ^3/uL (0-1.3); Monocytes % (auto) 6.1 % (0.0-12.0); Neutrophils # (auto) 4.3 10 ^3/uL (1.6-8.6); Neutrophils % (auto) 60.7 % (37.0-80.0); Nucleated Red Blood Cells % 0.1 %; Platelet Count (auto) 233 10^3/uL (140-450); Red Blood Cells 4.83 10^6/uL (4.5-5.90); Red Cell Distribution Width 13.5 % (11.8-14.3); White Blood Cell 7.1 10^3/uL (4.4-10.8)
[2021-04-18 11:55] LABS: BUN/Creatinine Ratio 14.4; Bilirubin, Total 0.5 mg/dL (0.2-1.0); Total Protein 7.5 g/dL (6.4-8.2)
[~2021-04-22] VITALS: Ht 177.8 cm; Wt 90.7 kg
[2021-04-22] MEDS ORDERED: SODIUM CHLORIDE LOCK 10 ML ONE (07:54)
[2021-04-22] MEDS ORDERED: SIMETHICONE 40 MG/0.6 ML ORAL DROP ONE (09:49)
[2021-04-22] MEDS: fentaNYL CITRATE 100 MCG/2 ML VL ONE ×2 (10:00→10:03)
[2021-04-22] MEDS: MIDAZOLAM HCL 5 MG/ML-1ML VIAL ONE ×3 (10:00→10:11)
[2021-04-22] MEDS: diphenhdrAMINE HCL 50 MG/1 ML VL ONE ×2 (10:01→10:04)
[2021-04-22 11:10] VITALS: BP 107/70
== END 2021-04-22 11:20 | disposition home or self-care (01) ==
LOC: GI 07:45
PROVIDERS: ATTEND Internal Medicine Gastroenterology
DX: Z12.11 Encounter for screening for malignant neoplasm of colon (principal); D12.3 Benign neoplasm of transverse colon; K63.89 Other specified diseases of intestine; K64.8 Other hemorrhoids; Z20.822 Contact with and (suspected) exposure to COVID-19; Z98.890 Other specified postprocedural states; Z79.899 Other long term (current) drug therapy; Z88.5 Allergy status to narcotic agent; Z85.038 Personal history of other malignant neoplasm of large intestine; Z86.010 Personal history of colon polyps
CPT/HCPCS: 36415; 45380; 45385; 80053; 85025; 85610; 85730; 88305; J1200; J2250; J3010; J7030; U0003; 99152

== ENCOUNTER → 2021-10-08 | Day surgery (SDC) | payer MEDICAID ==
[2021-10-03 14:17] LABS: Basophils # (auto) 0.1 10 ^3/uL (0-0.2); Basophils % (auto) 0.7 % (0.0-2.0); Eosinophils # (auto) 0.1 10 ^3/uL (0-0.8); Eosinophils % (auto) 1.1 % (0.0-7.0); Hematocrit 43.6 % (41.0-53.0); Hemoglobin 14.7 g/dL (13.5-17.5); Lymphocytes # (auto) 2.3 10 ^3/uL (0.4-5.4); Lymphocytes % (auto) 30.2 % (10.0-50.0); Mean Corpuscular Hemoglobin 30.9 pg (28.0-32.0); Mean Corpuscular Hgb Conc. 33.7 g/dL (32.0-36.0); Mean Corpuscular Volume 91.5 fL (80.0-100.0); Monocytes # (auto) 0.4 10 ^3/uL (0-1.3); Monocytes % (auto) 5.6 % (0.0-12.0); Neutrophils # (auto) 4.7 10 ^3/uL (1.6-8.6); Neutrophils % (auto) 62.4 % (37.0-80.0); Red Blood Cells 4.76 10^6/uL (4.5-5.90); White Blood Cell 7.6 10^3/uL (4.4-10.8)
[2021-10-03 15:03] LABS: Calcium 8.8 mg/dL (8.5-10.1); Potassium 4.1 mmol/L (3.5-5.1)
[2021-10-03 15:06] LABS: Albumin 3.8 g/dL (3.4-5.0); BUN/Creatinine Ratio 11.5
[2021-10-03 15:09] LABS: Bilirubin, Total 0.4 mg/dL (0.2-1.0); Total Protein 6.9 g/dL (6.4-8.2)
[~2021-10-08] VITALS: Ht 177.8 cm; Wt 90.7 kg
[~2021-10-08] MED LIST changes: -IBUP800T27 PO; +TERB250T28 PO; +diphenhdrAMINE HCL 50 MG/1 ML VL ONE
[2021-10-08] MEDS: fentaNYL CITRATE 100 MCG/2 ML VL ONE ×2 (12:53→12:56)
[2021-10-08] MEDS: MIDAZOLAM HCL 5 MG/ML-1ML VIAL ONE ×2 (12:53→12:56)
[2021-10-08 14:00] VITALS: BP 111/68
== END | disposition home or self-care (01) ==
LOC: GI 12:00
PROVIDERS: ATTEND Internal Medicine Gastroenterology
DX: K62.5 Hemorrhage of anus and rectum (principal); K31.7 Polyp of stomach and duodenum; K29.50 Unspecified chronic gastritis without bleeding; K44.9 Diaphragmatic hernia without obstruction or gangrene; K29.90 Gastroduodenitis, unspecified, without bleeding; Z87.891 Personal history of nicotine dependence; Z98.890 Other specified postprocedural states; Z79.899 Other long term (current) drug therapy; Z96.651 Presence of right artificial knee joint; Z88.5 Allergy status to narcotic agent; Z20.822 Contact with and (suspected) exposure to COVID-19
CPT/HCPCS: 36415; 43239; 80053; 85025; J1200; J2250; J3010; J7030; U0003; 99152

== ENCOUNTER 2022-04-18 15:40 | Emergency (ER) | payer MEDICAID ==
[~2022-04-18] VITALS: Ht 177.8 cm; Wt 95.3 kg
[~2022-04-18 15:40] MED LIST changes: -diphenhdrAMINE HCL 50 MG/1 ML VL ONE
[2022-04-18 15:46] VITALS: BP 109/76
[2022-04-18 18:09] LABS: Urine Bacteria NONE SEEN /hpf (None Seen); Urine Blood TRACE /uL (Negative); Urine Mucus FEW (None Seen); Urine Specific Gravity 1.036 (1.001-1.035); Urine WBC 27 /hpf (0 - 3)
[2022-04-18 22:30] LABS: Basophils # (auto) 0 10 ^3/uL (0-0.2); Basophils % (auto) 0.1 % (0.0-2.0); Eosinophils # (auto) 0 10 ^3/uL (0-0.8); Hematocrit 52.5 % (41.0-53.0); Hemoglobin 17.5 g/dL (13.5-17.5); Lymphocytes # (auto) 0.4 10 ^3/uL (0.4-5.4); Lymphocytes % (auto) 3.6 % (10.0-50.0); Mean Corpuscular Hemoglobin 31.1 pg (28.0-32.0); Mean Corpuscular Hgb Conc. 33.3 g/dL (32.0-36.0); Mean Corpuscular Volume 93.4 fL (80.0-100.0); Monocytes # (auto) 0.7 10 ^3/uL (0-1.3); Monocytes % (auto) 5.7 % (0.0-12.0); Neutrophils % (auto) 90.6 % (37.0-80.0); Red Blood Cells 5.62 10^6/uL (4.5-5.90); Red Cell Distribution Width 14.5 % (11.8-14.3); White Blood Cell 12.1 10^3/uL (4.4-10.8)
[2022-04-18 22:45] LABS: Albumin 4.5 g/dL (3.4-5.0); Calcium 9.4 mg/dL (8.5-10.1)
[2022-04-18 23:00] LABS: Bilirubin, Total 0.4 mg/dL (0.2-1.0); Total Protein 9.3 g/dL (6.4-8.2)
[2022-04-19] MEDS ORDERED: AZITHROMYCIN 250 MG TAB PO ONE (01:15)
[2022-04-19] MEDS ORDERED: predniSONE 20 MG TAB PO ONE (01:15)
[2022-04-19] MEDS ORDERED: PRED20TA2 PO (01:39)
[2022-04-19] MEDS ORDERED: ALBUAER3 IN (01:39)
[2022-04-19] MEDS ORDERED: AZIT250T9 PO (01:39)
[2022-04-19] MEDS ORDERED: DexAMETHasone SOD PHOS 10MG/1ML VIAL INJ IM ONE (02:45)
== END 2022-04-19 03:30 | disposition home or self-care (01) ==
LOC: ER 15:40
DX: J20.9 Acute bronchitis, unspecified (principal); Z20.822 Contact with and (suspected) exposure to COVID-19
CPT/HCPCS: 36415; 71045; 80053; 81001; 83880; 84484; 85025; 87426; 93005; 96372; 99285; J1100

== ENCOUNTER → 2022-05-06 | Outpatient (CLI) | payer MEDICAID ==
[~2022-05-06] MED LIST changes: +ALBUAER3 IN; +AZIT250T9 PO; +PRED20TA2 PO
[2022-05-06 10:30] LABS: Urine WBC None Seen /hpf (0 - 3)
[2022-05-06 10:35] LABS: Basophils # (auto) 0.1 10 ^3/uL (0-0.2); Basophils % (auto) 0.9 % (0.0-2.0); Eosinophils # (auto) 0.2 10 ^3/uL (0-0.8); Eosinophils % (auto) 2.5 % (0.0-7.0); Hematocrit 39.7 % (41.0-53.0); Hemoglobin 13.8 g/dL (13.5-17.5); Lymphocytes # (auto) 2.2 10 ^3/uL (0.4-5.4); Lymphocytes % (auto) 32.4 % (10.0-50.0); Mean Corpuscular Hemoglobin 31.3 pg (28.0-32.0); Mean Corpuscular Hgb Conc. 34.8 g/dL (32.0-36.0); Mean Corpuscular Volume 89.9 fL (80.0-100.0); Monocytes # (auto) 0.5 10 ^3/uL (0-1.3); Monocytes % (auto) 7.7 % (0.0-12.0); Neutrophils # (auto) 3.8 10 ^3/uL (1.6-8.6); Neutrophils % (auto) 56.5 % (37.0-80.0); Red Blood Cells 4.42 10^6/uL (4.5-5.90); Red Cell Distribution Width 13.7 % (11.8-14.3); White Blood Cell 6.8 10^3/uL (4.4-10.8)
[2022-05-06 10:40] LABS: Urine Bacteria NONE SEEN /hpf (None Seen); Urine Blood Negative /uL (Negative); Urine Specific Gravity 1.004 (1.001-1.035)
[2022-05-06 11:08] LABS: BUN/Creatinine Ratio 11.3; Calcium 8.9 mg/dL (8.5-10.1); Potassium 3.9 mmol/L (3.5-5.1)
== END | disposition home or self-care (01) ==
LOC: LAB 10:06
PROVIDERS: ATTEND Internal Medicine Gastroenterology
DX: R93.3 Abnormal findings on diagnostic imaging of other parts of digestive tract (principal)
CPT/HCPCS: 36415; 80048; 81001; 85025; 87086

== ENCOUNTER 2022-08-27 10:22 | Outpatient (CLI) | payer MEDICAID ==
[~2022-08-27] VITALS: Ht 177.8 cm; Wt 97.5 kg
[2022-08-27 10:56] LABS: Basophils # (auto) 0 10 ^3/uL (0-0.2); Basophils % (auto) 0.4 % (0.0-2.0); Eosinophils # (auto) 0.1 10 ^3/uL (0-0.8); Eosinophils % (auto) 0.9 % (0.0-7.0); Hematocrit 44.7 % (41.0-53.0); Lymphocytes # (auto) 2.2 10 ^3/uL (0.4-5.4); Lymphocytes % (auto) 24.7 % (10.0-50.0); Mean Corpuscular Hemoglobin 30.4 pg (28.0-32.0); Mean Corpuscular Hgb Conc. 33.5 g/dL (32.0-36.0); Mean Corpuscular Volume 90.8 fL (80.0-100.0); Monocytes # (auto) 0.5 10 ^3/uL (0-1.3); Monocytes % (auto) 6.2 % (0.0-12.0); Neutrophils # (auto) 5.9 10 ^3/uL (1.6-8.6); Neutrophils % (auto) 67.8 % (37.0-80.0); Red Blood Cells 4.93 10^6/uL (4.5-5.90); Red Cell Distribution Width 13.6 % (11.8-14.3); White Blood Cell 8.7 10^3/uL (4.4-10.8)
[2022-08-27 11:17] LABS: Albumin 3.9 g/dL (3.4-5.0); Calcium 8.5 mg/dL (8.5-10.1); Potassium 3.6 mmol/L (3.5-5.1)
[2022-08-27 11:21] LABS: BUN/Creatinine Ratio 10.3; Bilirubin, Total 0.4 mg/dL (0.2-1.0); Total Protein 7.1 g/dL (6.4-8.2)
[2022-08-27 11:45] LABS: INR 1.02 (0.9-1.15); Partial Thromboplastin Time 29.2 sec (24.6-33.4)
== END 2022-08-27 10:33 | disposition home or self-care (01) ==
LOC: LAB 10:22 → EDSTATUS 08-28 10:58 → SUR 08-28 13:25
PROVIDERS: ATTEND Internal Medicine Gastroenterology
DX: Z01.812 Encounter for preprocedural laboratory examination (principal); U07.1 COVID-19; D12.6 Benign neoplasm of colon, unspecified
CPT/HCPCS: 36415; 80053; 85025; 85610; 85730; U0003

== ENCOUNTER → 2022-10-09 | Day surgery (SDC) | payer MEDICAID ==
[2022-10-06 10:57] LABS: Basophils # (auto) 0 10 ^3/uL (0-0.2); Basophils % (auto) 0.4 % (0.0-2.0); Eosinophils # (auto) 0.1 10 ^3/uL (0-0.8); Hematocrit 45.2 % (41.0-53.0); Hemoglobin 15.6 g/dL (13.5-17.5); Lymphocytes # (auto) 2.6 10 ^3/uL (0.4-5.4); Lymphocytes % (auto) 32.6 % (10.0-50.0); Mean Corpuscular Hemoglobin 31.3 pg (28.0-32.0); Mean Corpuscular Hgb Conc. 34.4 g/dL (32.0-36.0); Mean Corpuscular Volume 90.9 fL (80.0-100.0); Monocytes # (auto) 0.5 10 ^3/uL (0-1.3); Monocytes % (auto) 6.3 % (0.0-12.0); Neutrophils # (auto) 4.8 10 ^3/uL (1.6-8.6); Neutrophils % (auto) 59.7 % (37.0-80.0); Red Blood Cells 4.97 10^6/uL (4.5-5.90); Red Cell Distribution Width 13.8 % (11.8-14.3)
[2022-10-06 11:16] LABS: INR 1.01 (0.9-1.15); Partial Thromboplastin Time 29.7 sec (24.6-33.4)
[2022-10-06 11:33] LABS: Albumin 3.9 g/dL (3.4-5.0); Potassium 3.8 mmol/L (3.5-5.1)
[2022-10-06 11:36] LABS: BUN/Creatinine Ratio 10.8; Bilirubin, Total 0.5 mg/dL (0.2-1.0); Total Protein 7.6 g/dL (6.4-8.2)
[~2022-10-09] VITALS: Ht 177.8 cm; Wt 97.5 kg
[~2022-10-09] MED LIST changes: -ALBUAER3 IN; -AZIT250T9 PO; -PRED20TA2 PO
[2022-10-09] MEDS: fentaNYL CITRATE 100 MCG/2 ML VL ONE ×2 (13:43→13:50)
[2022-10-09] MEDS: MIDAZOLAM HCL 5 MG/ML-1ML VIAL ONE ×3 (13:43→13:55)
[2022-10-09] MEDS: diphenhdrAMINE HCL 50 MG/1 ML VL ONE ×2 (13:45→13:50)
[2022-10-09 14:35] VITALS: BP 103/76
== END | disposition home or self-care (01) ==
LOC: GI 09:54
PROVIDERS: ATTEND Internal Medicine Gastroenterology
DX: R19.5 Other fecal abnormalities (principal); Z85.038 Personal history of other malignant neoplasm of large intestine; K64.0 First degree hemorrhoids; Z20.822 Contact with and (suspected) exposure to COVID-19; Z98.890 Other specified postprocedural states
CPT/HCPCS: 36415; 45378; 80053; 85025; 85610; 85730; J1200; J2250; J3010; J7030; U0003; 99152; 99153